=== PATIENT | male | born 1990 | race Caucasian/White ===

== ENCOUNTER 2019-10-26 15:34 | Emergency (ER) | payer OTHER ==
[~2019-10-26] VITALS: Ht 162.6 cm; Wt 68.1 kg
[2019-10-26] MEDS ORDERED: KEFLEX500 M1 PO (16:48)
[2019-10-26 16:52] VITALS: BP 106/71
== END 2019-10-26 16:55 | disposition home or self-care (01) | DRG 605 ==
LOC: ED 15:34
PROC: 0HQGXZZ Repair Left Hand Skin, External Approach (ICD-10-PCS; principal; 2019-10-26)
DX: S61.211A Laceration without foreign body of left index finger without damage to nail, initial encounter (principal); W26.0XXA Contact with knife, initial encounter; Y93.G1 Activity, food preparation and clean up; Y92.009 Unspecified place in unspecified non-institutional (private) residence as the place of occurrence of the external cause; Z20.828 Contact with and (suspected) exposure to other viral communicable diseases

== ENCOUNTER 2019-11-06 16:45 | Emergency (ER) | payer OTHER ==
[~2019-11-06] VITALS: Ht 162.6 cm; Wt 68.0 kg
[~2019-11-06 16:45] MED LIST: KEFLEX500 M1 PO
[2019-11-06 17:08] VITALS: BP 125/83
== END 2019-11-06 17:14 | disposition home or self-care (01) | DRG 950 ==
LOC: ED 16:45
DX: S61.211D Laceration without foreign body of left index finger without damage to nail, subsequent encounter (principal); X58.XXXD Exposure to other specified factors, subsequent encounter

== ENCOUNTER 2022-09-06 16:50 | Emergency (ER) | payer BC ==
[~2022-09-06] VITALS: Ht 162.6 cm; Wt 69.7 kg
[2022-09-06 16:57] VITALS: BP 112/80
[2022-09-06 17:00] VITALS: BP 111/77
[2022-09-06] MEDS ORDERED: CIPROFLOXACN500 MG PO (17:09)
[2022-09-06] MEDS ORDERED: METRONIDAZOLE500 MG PO (17:09)
[2022-09-06 17:22] LABS: BASO% 0.7 % (0-3); EOS% 6.1 % (0-8); HEMATOCRIT 41.9 % (39.0-50.0); HEMOGLOBIN 13.7 g/dl (14.0-18.0); IMMATURE GRANULOCYTES 0.1 % (0.0-5.0); LYMPH% 34.1 % (15-41); MEAN CELL VOLUME 87.7 fL CALC (80.0-100.0); MEAN CORPUSCULAR HGB 28.7 pG CALC (26.0-32.0); MEAN CORPUSCULAR HGB CONC 32.7 g/dL CAL (32.0-36.0); MONO% 9.5 % (2-13); NEUT# 3.98 thou/uL (1.82-7.42); NEUT% 49.5 % (42-76); RED BLOOD COUNT 4.78 mill/uL (4.70-6.10); RED CELL DISTRI WIDTH 12.7 % (11.5-15.5)
[2022-09-06 17:42] LABS: ALBUMIN 4.6 g/dL (3.2-5.0); ALKALINE PHOSPHATASE 53 u/l (38-126); ANION GAP 13 (6-22 (CALC)); BILIRUBIN, TOTAL 0.5 mg/dL (0.2-1.3); BUN 11 mg/dL (9-20); BUN/CREATININE RATIO 11 (12-20 (CALC)); CARBON DIOXIDE 25 mmol/l (22-30); CHLORIDE 106 mmol/l (95-108); CREATININE 1.1 mg/dL (0.7-1.3); GFR FOR AFR.AMER. > 60 ML/MIN (>=60 (CALC)); GFR OTHER RACES > 60 ML/MIN (>=60 (CALC)); LIPASE 117 u/l (23-300); SGOT/AST 44 u/l (17-59); SODIUM 139 mmol/l (137-146); TOTAL PROTEIN 7.9 g/dL (6.3-8.2)
[2022-09-06 18:52] LABS: URINE BILIRUBIN - DIPSTICK NEGATIVE (NEGATIVE); URINE COLOR YELLOW; URINE GLUCOSE - DIPSTICK NEGATIVE (NEGATIVE); URINE KETONE TRACE mg/dL (NEGATIVE); URINE PROTEIN - DIPSTICK NEGATIVE (NEG-TRACE); URINE UROBILINOGEN - DIPSTICK 0.2 E.U./dL (0.2)
[2022-09-06 18:53] LABS: URINE BLOOD DIPSTICK NEGATIVE (NEGATIVE); URINE LEUK ESTERASE NEGATIVE (NEGATIVE); URINE NITRITE - DIPSTICK NEGATIVE (Negative)
[2022-09-06 19:19] VITALS: BP 113/79
[2022-09-06 19:28] VITALS: BP 113/79
== END 2022-09-06 19:30 | disposition home or self-care (01) | DRG 392 ==
LOC: ED 16:50
PROVIDERS: Family Medicine
DX: K59.00 Constipation, unspecified (principal)